=== PATIENT | female | born 1960 | race Caucasian/White ===

== ENCOUNTER 2018-09-04 19:40 | Emergency (ER) | payer MEDICAID ==
[2018-09-04] MEDS ORDERED: Nitroglycerin 0.4 MG Tab.SL SL ONE (20:36)
[2018-09-04] MEDS ORDERED: Labetalol 20 MG/4 ML Syringe IVPUSH ONE (20:36)
--- NOTE | 2018-09-04 20:40 | EDM.PDOC ---
ED HPI GENERAL MEDICAL PROBLEM - General Chief Complaint: Chest Pain Stated Complaint: CHEST PAIN Time Seen by Provider: 09/04/18 20:20 Source of Information: Reports: Patient, Family History Limitations: Reports: No Limitations - History of Present Illness INITIAL COMMENTS - FREE TEXT/NARRATIVE: 58-year-old female undergoing chemotherapy for ovarian cancer. After she receives chemotherapy, she tends to get a marked increase in systolic blood pressure which at time causes some mild chest discomfort. This started occurring again this afternoon, she took her blood pressure medication which was atenolol an hour and a half early but it's not having an effect. Last time this happened she had to go in and get IV medication. No shortness of breath, the pain is dull substernal and persistent, radiates somewhat to the back. No nausea or vomiting, no diaphoresis. She recently had an echocardiogram which was normal. Onset: Gradual Duration: Hour(s): (Over the past 4-6 hours) Location: Reports: Chest Associated Symptoms: Reports: Chest Pain. Denies: Cough, Diaphoresis, Fever/ Chills, Loss of Appetite, Nausea/Vomiting, Shortness of Breath Middle Anterior Sternum Pain Score (Numeric/FACES): 2 - Related Data Allergies Allergy/AdvReac Type Severity Reaction Status Date / Time No Known Allergies Allergy Verified 09/04/18 19:58 Home Meds: Home Meds Apixaban [Eliquis] 5 mg PO BID 09/04/18 [History] Atenolol 50 mg PO DAILY 09/04/18 [History] Atezolizumab [Tecentriq] 1,200 mg IV ASDIRECTED 09/04/18 [History] Bevacizumab [Avastin] 400 mg IV ASDIRECTED 09/04/18 [History] Chlorpheniramine Maleate 4 mg PO Q4H PRN 09/04/18 [History] Cholecalciferol (Vitamin D3) [Vitamin D] 5,000 unit PO DAILY 09/04/18 [History] Fluticasone Propionate [Flonase] 1 spray NASBOTH BID 09/04/18 [History] Lactobac Cmb #3/Fos/Pantethine [Probiotic & Acidophilus] 2 each PO BID 09/04/18 [History] Lactulose 10 gm PO BID 09/04/18 [History] Losartan/Hydrochlorothiazide [Hyzaar 100-12.5 Tablet] 1 each PO DAILY 09/04/18 [ History] Magnesium Glycinate [Mag Glycinate] 250 mg PO BID 09/04/18 [History] Melatonin 10 mg PO BEDTIME 09/04/18 [History] Montelukast [Singulair] 10 mg PO DAILY 09/04/18 [History] Multivit,Calc,Mins/Iron/Folic [Therapeutic-M Tablet] 1 each PO DAILY 09/04/18 [ History] Ondansetron [Zofran] 8 mg PO BID PRN 09/04/18 [History] Phenazopyridine [Pyridium] 100 mg PO TID 09/04/18 [History] Prochlorperazine [Compazine] 10 mg PO Q6H PRN 09/04/18 [History] Pyridoxine HCl [Vitamin B-6] 100 mg PO TID 09/04/18 [History] Selenium 100 mcg PO DAILY 09/04/18 [History] Triamcinolone Acetonide [Triamcinolone Acetonide 0.1% Oint] 80 gm .XX TID [History] traZODone HCl [Trazodone HCl] 50 mg PO DAILY 09/04/18 [History] Past Medical History HEENT History: Reports: Allergic Rhinitis Cardiovascular History: Reports: Heart Murmur, Other (See Below) Other Cardiovascular History: bradycardia Gastrointestinal History: Reports: Other (See Below) Other Gastrointestinal History: omentectomy due to possible cancer Genitourinary History: Reports: UTI, Recurrent [employer]ER History: Reports: Musculoskeletal History: Reports: Fracture Hematologic History: Reports: Anticoagulation Therapy Oncologic (Cancer) History: Reports: Ovarian, Other (See Below) Other Oncologic History: stage 3 ovarian cancer, possibly in diaphragm - Past Surgical History Female Surgical History: Reports: Hysterectomy, Oophorectomy Social & Family History - Tobacco Use Smoking Status *Q: Never Smoker - Caffeine Use Caffeine Use: Reports: Coffee - Recreational Drug Use Recreational Drug Use: No ED ROS GENERAL - Review of Systems Review Of Systems: See Below Constitutional: Denies: Fever, Chills HEENT: Reports: No Symptoms Respiratory: Denies: Shortness of Breath Cardiovascular: Reports: Chest Pain, Palpitations (No irregular sensation but she can feel her heart beating more pronounced than usual) GI/Abdominal: Reports: Abdominal Pain (Some discomfort in the epigastric area only). Denies: Nausea, Vomiting : Reports: No Symptoms Skin: Reports: No Symptoms Neurological: Reports: No Symptoms Psychiatric: Denies: Anxiety ED EXAM, GENERAL - Physical Exam Exam: See Below Exam Limited By: No Limitations General Appearance: Alert, No Apparent Distress Eye Exam: Bilateral Eye: EOMI Head: Atraumatic Respiratory/Chest: No Respiratory Distress, Lungs Clear Cardiovascular: Regular Rate, Rhythm. No: Tachycardia GI/Abdominal: Soft, Tender (Mild discomfort with palpation of the epigastric area and anterior chest over the lower sternum) Extremities: No: Pedal Edema Neurological: Alert, Oriented Psychiatric: Normal Affect, Normal Mood Skin Exam: Warm, Dry EKG INTERPRETATION Rhythm: NSR Course - Vital Signs Last Recorded V/S: Last Vital Signs Temp 96.9 F 09/04/18 20:16 Pulse 48 L 09/04/18 21:58 Resp 10 L 09/04/18 21:58 BP 178/75 H 09/04/18 21:58 Pulse Ox 97 09/04/18 21:58 - Orders/Labs/Meds Labs: Laboratory Tests 09/04/18 09/04/18 Range/Units 20:41 20:41 WBC 6.6 (4.5-11.0) K/uL RBC 4.85 (3.30-5.50) M/uL Hgb 13.8 (12.0-15.0) g/dL Hct 42.7 (36.0-48.0) % MCV 88 (80-98) fL MCH 29 (27-31) pg MCHC 32 (32-36) % Plt Count 142 L (150-400) K/uL Neut % (Auto) 49 (36-66) % Lymph % (Auto) 41 (24-44) % [place] % (Auto) 8 H (2-6) % Eos % (Auto) 2 (2-4) % Baso % (Auto) 1 (0-1) % Sodium 136 L (140-148) mmol/L Potassium 4.2 (3.6-5.2) mmol/L Chloride 102 (100-108) mmol/L Carbon Dioxide 25 (21-32) mmol/L Anion Gap 13.2 (5.0-14.0) mmol/L BUN 16 (7-18) mg/dL Creatinine 0.8 (0.6-1.0) mg/dL Est Cr Clr Drug Dosing 57.14 mL/min Estimated GFR (MDRD) > 60 (>60) Glucose 133 H (74-106) mg/dL Calcium 9.5 (8.5-10.1) mg/dL Troponin I < 0.017 (0.000-0.056) ng/mL Meds: Medications Discontinued Medications Generic Name Dose Route Start Last Admin Trade Name Freq PRN Reason Stop Dose Admin Heparin Sodium (Porcine) Confirm 09/04/18 21:11 Heparin Lock Flush 100 Units/Ml Administered 09/04/18 21:12 Dose 500 units .ROUTE .STK-MED ONE Heparin Sodium (Porcine) 500 units 09/04/18 21:14 09/04/18 21:15 Heparin Lock Flush 100 Units/Ml FLUSH 500 units ASDIRECTED PRN Administration Other Labetalol HCl 20 mg 09/04/18 20:36 09/04/18 20:51 Normodyne IVPUSH 09/04/18 20:37 20 mg NOW ONE Administration Protocol Nitroglycerin 0.4 mg 09/04/18 20:36 09/04/18 20:50 Nitrostat SL 09/04/18 20:37 0.4 mg ONETIME ONE Administration - Re-Assessments/Exams Free Text/Narrative Re-Assessment/Exam: 09/04/18 20:40 EKG was obtained and is completely normal. A repeat blood pressure was obtained and she is still at 228 systolic. Patient will be given 20 mg of IV labetalol through the port, and one dose of sublingual nitroglycerin. BMP and troponin obtained. 09/04/18 21:42 CBC and CMP are normal, troponin is 0. Patient's blood pressure normalized after the medications. She'll be discharged with some sublingual nitroglycerin to take on a when necessary basis for hypertension if that is satisfactory to her primary oncology providers. Departure - Departure Time of Disposition: 22:22 Disposition: Home, Self-Care 01 Condition: Good Clinical Impression: Systolic hypertension, Side effect of drug Ovarian cancer Qualifiers: Laterality: unspecified laterality Qualified Code(s): C56.9 - Malignant neoplasm of unspecified ovary - Discharge Information Instructions: Hypertension, [id number] Referrals: Niels Malone MD [Primary Care Provider] - Forms: ED Department Discharge Care Plan Goals: Continue your current medications, use sublingual nitroglycerin once every 5 minutes up to 3 doses for symptomatic high blood pressure. Discuss with your oncology providers if needed. Return anytime if worsening or concerns.
== END 2018-09-04 20:20 | disposition home or self-care (01) ==
LOC: MERGE 19:40 → JP.ED 19:40
DX: I10 Essential (primary) hypertension (principal); T45.1X5A Adverse effect of antineoplastic and immunosuppressive drugs, initial encounter; C56.9 Malignant neoplasm of unspecified ovary; Z79.01 Long term (current) use of anticoagulants; Z79.899 Other long term (current) drug therapy
CPT/HCPCS: 36415; 80048; 84484; 85025; 93005; 99285; A9270; J1642; J3490

== ENCOUNTER 2018-09-07 19:53 | Emergency (ER) | payer MEDICAID ==
[2018-09-07] MEDS ORDERED: hydrALAZINE 20 MG/ML SDV IVPUSH ONE ×2 (21:53→23:02)
[2018-09-07] MEDS ORDERED: amLODIPine 5 MG Tab PO ONE (21:54)
--- NOTE | 2018-09-08 00:31 | EDM.PDOC ---
ED HPI GENERAL MEDICAL PROBLEM - General Chief Complaint: Cardiovascular Problem Stated Complaint: CHEST PAIN Time Seen by Provider: 09/07/18 23:00 Source of Information: Reports: Patient History Limitations: Reports: No Limitations - History of Present Illness INITIAL COMMENTS - FREE TEXT/NARRATIVE: 58-year-old with history of ovarian cancer currently on chemotherapy presents with concerns of hypertension. She reports that hypertension is a known side effect of recurrent chemotherapeutic. She has had issues with transient rises in her BP in the past been attributed to this. The dose of her chemotherapeutic was recently doubled. Today she was following her blood pressures at home and noted several readings over 200. She called her oncologist and took a when necessary dose of atenolol which was not effective so she was referred to the ED. She is concern of some mild nausea. She has no chest pain. No headache. epigastric Pain Score (Numeric/FACES): 6 - Related Data Allergies Allergy/AdvReac Type Severity Reaction Status Date / Time No Known Allergies Allergy Verified 09/07/18 21:54 Home Meds: Home Meds Cholecalciferol (Vitamin D3) [Vitamin D3] 1 tab PO DAILY 01/27/18 [History] Glutamine [l-Glutamine] 1 tsp PO DAILY 01/27/18 [History] L.acidoph,Paracasei, B.lactis [Probiotic] 1 tab PO DAILY 01/27/18 [History] Magnesium 1 tab PO BID 01/27/18 [History] Melatonin 20 mg PO DAILY 01/27/18 [History] Multivitamin [Multivitamins] 1 tab PO DAILY 01/27/18 [History] Pyridoxine HCl [Vitamin B-6] 1 tab PO DAILY 01/27/18 [History] Vit A & D3 In Cod Liver Oil [Cod Liver Oil Softgel] 1 tab PO DAILY 01/27/18 [ History] amLODIPine Besylate [Amlodipine Besylate] 1 tab PO DAILY 01/27/18 [History] amLODIPine Besylate [Norvasc] 10 mg PO DAILY #30 tablet 09/08/18 [Rx] Past Medical History Cardiovascular History: Reports: Hypertension Gastrointestinal History: Reports: Other (See Below) Other Gastrointestinal History: omentum removed august 2017 [employer] History: Reports: Oncologic (Cancer) History: Reports: Ovarian - Infectious Disease History Infectious Disease History: Reports: C-Difficile, Measles, Mumps - Past Surgical History Female Surgical History: Reports: Hysterectomy, Tubal Ligation Social & Family History - Family History Family Medical History: Noncontributory - Tobacco Use Smoking Status *Q: Never Smoker - Caffeine Use Caffeine Use: Reports: Coffee - Recreational Drug Use Recreational Drug Use: No ED ROS GENERAL - Review of Systems Review Of Systems: See Below Constitutional: Reports: No Symptoms HEENT: Reports: No Symptoms Respiratory: Reports: No Symptoms Cardiovascular: Reports: No Symptoms Endocrine: Reports: No Symptoms GI/Abdominal: Reports: Nausea : Reports: No Symptoms Musculoskeletal: Reports: No Symptoms Skin: Reports: No Symptoms Neurological: Reports: No Symptoms Psychiatric: Reports: No Symptoms Hematologic/Lymphatic: Reports: No Symptoms Immunologic: Reports: No Symptoms ED EXAM, GENERAL - Physical Exam Exam: See Below Exam Limited By: No Limitations General Appearance: Alert, No Apparent Distress Eye Exam: Bilateral Eye: EOMI Nose: Normal Inspection Throat/Mouth: Normal Inspection Head: Atraumatic, Normocephalic Respiratory/Chest: No Respiratory Distress, Lungs Clear Cardiovascular: Regular Rate, Rhythm GI/Abdominal: Soft, Non-Tender Back Exam: Normal Inspection Neurological: Alert, Oriented, CN II-XII Intact, No Motor/Sensory Deficits Psychiatric: Normal Affect, Normal Mood Skin Exam: Warm, Dry EKG INTERPRETATION EKG Date: 09/07/18 Rhythm: NSR [place]: Normal QRS: Normal ST-T: Normal QT: Normal Course - Vital Signs Last Recorded V/S: Last Vital Signs Temp 36.4 C 09/07/18 20:08 Pulse 62 09/07/18 23:42 Resp 12 09/07/18 23:42 BP 174/82 H 09/07/18 23:42 Pulse Ox 92 L 09/07/18 23:42 - Orders/Labs/Meds Orders: Active Orders 24 hr Category Date Time Status EKG Documentation Completion [RC] ASDIRECTED Care 09/07/18 23:11 Active EKG 12 Lead [EK] Routine Ther 09/07/18 23:11 Ordered Meds: Medications Discontinued Medications Generic Name Dose Route Start Last Admin Trade Name Freq PRN Reason Stop Dose Admin Amlodipine Besylate 10 mg 09/07/18 21:54 09/07/18 22:09 Norvasc PO 09/07/18 21:55 10 mg ONETIME ONE Administration Heparin Sodium (Porcine) 500 units 09/07/18 20:36 09/07/18 22:10 Heparin Lock Flush 100 Units/Ml FLUSH 09/07/18 20:37 500 units ASDIRECTED ONE Administration Hydralazine HCl 10 mg 09/07/18 21:53 09/07/18 22:09 Apresoline IVPUSH 09/07/18 21:54 10 mg ONETIME ONE Administration Hydralazine HCl 10 mg 09/07/18 23:02 09/07/18 23:12 Apresoline IVPUSH 09/07/18 23:03 10 mg ONETIME ONE Administration - Re-Assessments/Exams Free Text/Narrative Re-Assessment/Exam: 58-year-old presents with seemingly asymptomatic hypertension. She has a history of this which reportedly is a known side effect of her chemotherapy for ovarian cancer. In the emergency department she was noted to have systolic blood pressures greater than 200. Although BP is elevated no symptoms suggestive of hypertensive emergency. She was treated with IV hydralazine with approximately 20% reduction in her BP We have given her a dose of amlodipine and she will be continued on this agent, with plan to follow-up with oncologist and PCP this week. 09/08/18 00:31 Departure - Departure Time of Disposition: 00:34 Disposition: Home, Self-Care 01 Clinical Impression: Hypertension Qualifiers: Hypertension type: other secondary hypertension Qualified Code(s): I15.8 - Other secondary hypertension Referrals: Niels Malone MD [Primary Care Provider] - Additional Instructions: Please begin taking the prescribed amlodipine tomorrow Continue all other home medications Follow-up with your oncologist and PCP as discussed - My Orders Last 24 Hours: My Active Orders 09/07/18 23:11 EKG Documentation Completion [RC] ASDIRECTED EKG 12 Lead [EK] Routine - Assessment/Plan Last 24 Hours: My Active Orders 09/07/18 23:11 EKG Documentation Completion [RC] ASDIRECTED EKG 12 Lead [EK] Routine
== END 2018-09-08 00:51 | disposition home or self-care (01) ==
LOC: JP.ED 19:53
DX: I15.8 Other secondary hypertension (principal); Z79.899 Other long term (current) drug therapy
CPT/HCPCS: 93005; 96374; 96376; 99284; A9270; J0360; J1642